=== PATIENT | female | born 1995 | race Caucasian/White ===

== ENCOUNTER 2024-12-21 19:04 | Emergency (ER) | payer OTHER ==
[~2024-12-21] VITALS: Ht 167.6 cm; Wt 68.0 kg
[2024-12-21 19:05] VITALS: BP 101/59; PULSE 73; RESP 16; TEMP 37; O2SAT 98
[2024-12-21 22:24] LABS: BASOPHILS % 0.2 % (0.0-2.0); EOSINOPHILS % 0.7 % (0.0-5.0); HEMATOCRIT. 38.9 % (36.0-48.0); HEMOGLOBIN. 12.4 g/dL (12.0-16.0); LYMPHOCYTES % 12.7 % (20.0-50.0); MEAN CORPUSCULAR HEMOGLOBIN 26.6 pg (28.0-32.0); MEAN CORPUSCULAR HGB CONC 31.8 g/dL (31.0-37.0); MEAN CORPUSCULAR VOLUME 83.7 fL (81.0-99.0); MONOCYTES % 7.1 % (2.0-8.0); NEUTROPHILS % 79.3 % (40.0-76.0); PLATELET 303 x1000/uL (130-400); RED BLOOD CELL COUNT 4.66 mill/uL (4.2-5.4); RED CELL DISTRIBUTION WIDTH 14.3 % (11.6-14.6); WHITE BLOOD COUNT 11.4 x1000/uL (4.5-11.0)
[2024-12-21 22:33] LABS: CHLORIDE 108 mEq/L (98-107); POTASSIUM 3.7 mEq/L (3.5-5.1); SODIUM 142 mEq/L (136-145)
[2024-12-21 22:34] LABS: CARBON DIOXIDE 26 mEq/L (21-32)
[2024-12-21 22:35] LABS: CALCIUM 9.5 mg/dL (8.7-10.4)
[2024-12-21 22:39] LABS: CREATININE 0.7 mg/dL (0.6-1.0); GLUCOSE 104 mg/dL (70-105); UREA NITROGEN BLOOD 10 mg/dL (9-23)
[2024-12-21] MEDS ORDERED: ONDA-239 PO (22:55)
[2024-12-21] MEDS ORDERED: IBUP-2029 MT (22:55)
== END 2024-12-21 23:20 | disposition home or self-care (01) ==
LOC: ER 19:04
DX: S09.8XXA Other specified injuries of head, initial encounter (principal); R56.9 Unspecified convulsions; W19.XXXA Unspecified fall, initial encounter; Y93.89 Activity, other specified; Y92.89 Other specified places as the place of occurrence of the external cause; Y99.8 Other external cause status
CPT/HCPCS: 36415; 80048; 85025; 99283